=== PATIENT | male | born 1970 | race Caucasian/White ===

== ENCOUNTER 2023-07-20 08:59 | Emergency (ER) | payer SELFPAY ==
[2023-07-20] VITALS (7 sets, daily range): BP systolic 57–78; BP diastolic 35–60; PULSE 100–114; RESP 17–23; TEMP 36.4; O2SAT 83–100
--- NOTE | ~2023-07-20 | XR_ITS ---
EXAMINATION: XR chest port-a-cath/central DATE: 07/20/2023 09:58 INDICATION: Chest pain and shortness of breath. Central line placement. TECHNIQUE: frontal view of the chest was obtained. COMPARISON: None FINDINGS: Right internal jugular central venous catheter with distal tip at the cephalad superior vena cava. Di ffuse perihilar predominant groundglass opacity and increased interstitial pattern with peripheral Ke rley B-lines consistent with mild pulmonary edema. No pleural effusion or pneumothorax. Cardiomegaly. IMPRESSION: 1. Right internal jugular central venous catheter with distal tip in the cephalad superior vena cava. 2. Likely congestive heart failure with cardiomegaly and mild pulmonary edema. Reviewed, dictated and finalized at location A. IMPRESSION: 1. Right internal jugular central venous catheter with distal tip in the cephal ad superior vena cava. 2. Likely congestive heart failure with cardiomegaly and mild pulmonary edema.
--- NOTE | 2023-07-20 09:05 | ECG_ITS ---
Measurements Intervals [place] Rate: 99 P: 55 PA: 233 QRS: 59 QRSD: 144 T: 60 QT: 349 QTc: 449 Interpretive Statements SINUS RHYTHM WITH SINUS ARRHYTHMIA WITH FIRST DEGREE AV BLOCK POSSIBLE LEFT ATRIAL ENLARGEMENT INTRAVENTRICULAR CONDUCTION DELAY CANNOT RULE OUT SEPTAL INFARCT, AGE INDETERMINATE MINIMAL Q WAVES- INFERIOR LEADS ST-T WAVE ABNORMALITY IN HIGH LATERAL LEADS- CONSIDER ISCHEMIA BASELINE WANDER- II, III, AVF, V4 ABNORMAL ECG NO PREVIOUS ECG AVAILABLE FOR COMPARISON Electronically Signed On 07-20-2023 10:19:18 CDT by Jermaine Alexander D.O.
[2023-07-20 09:30] LABS: Basophils Percent Auto 0.3 % (0.2-1.2); Eosinophils Absolute Auto 0.1 K/mm3 (0-0.3); Eosinophils Percent Auto 0.7 % (0-4.4); Hematocrit 35.2 % (42.0-52.0); Immature Granulocyte Absolute 0.21 K/mm3 (0.00-0.031); Immature Granulocyte Percent A 1.7 % (0-0.5); Lymphocytes Absolute Auto 1.48 K/mm3 (0.9-3.2); Lymphocytes Percent Auto 12.1 % (18.3-44.2); Mean Corpuscular HGB Conc 34.1 g/dl (32-36); Mean Corpuscular Hemoglobin 30.8 pg (26-34); Mean Corpuscular Volume 90.3 fl (80-100); Mean Platelet Volume 11.1 fl (7.4-10.4); Monocytes Absolute Auto 0.6 K/mm3 (0.1-0.6); Monocytes Percent Auto 4.6 % (2.6-8.5); Neutrophils Absolute Auto 9.9 K/mm3 (1.3-6.7); Neutrophils Percent Auto 80.6 % (45.5-73.1); Platelet Count Result 205 k/mm3 (150-375); Red Cell Distribution Width 12.8 % (11.5-14.5); White Blood Count 12.2 K/mm3 (4.5-10.0)
[2023-07-20 09:38] LABS: Alanine Aminotransferase 73 U/L (6-50); Albumin Level 4.3 g/dL (3.5-5.1); Alkaline Phosphatase 47 U/L (38-126); Anion Gap 11 mmol/L (8-16); Aspartate Amino Transferase 92 U/L (17-59); Bilirubin,Total 0.9 mg/dL (0.2-1.3); Blood Urea Nitrogen 19 mg/dL (9-20); Calcium 8.3 mg/dL (8.4-10.2); Carbon Dioxide 22 mmol/L (22-30); Chloride 94 mmol/L (98-107); Estimated CRCL calculation 81 ml/min; Estimated Glomerular Filt Rate > 60; Glucose 164 mg/dL (65-110); Lipase 81 U/L (23-300); Potassium 4.9 mmol/L (3.4-5.0); Sodium 127 mmol/L (137-145)
[2023-07-20 09:39] LABS: Partial Thromboplastin Time 26.9 SECONDS (22.3-36.8); Prothrombin Time 14.1 Seconds (11.1-14.7)
[2023-07-20] MEDS: NOREPINEPHRINE 8 MG/D5W 250 ML 8 MG/250 ML BAG 9.38 MG IV CONT (09:42)
--- NOTE | 2023-07-20 09:48 | ED.CHESTPAIN ---
HPI - Chest Pain General Chief Complaint: Chest Pain Stated Complaint: cp Time Seen by Provider: 07/20/23 09:00 History of Present Illness HPI narrative: Patient is a 53-year-old male who presents ER with chest pain. Patient was at his PCPs office. He was there reporting epigastric pain and heartburn. She felt he appeared quite ill and that he was having heart failure issue as he had some crackles and brief hypoxia upon presentation there. She called report to the hospital prior to his arrival. In route patient was comfortable but upon entering the ED patient became pale and diaphoretic. Patient only reports that he has burning across his chest and he has the desire to belch. He would like some acid reflux medication or [place] to treat his discomfort. Patient reports his vascular manager is Dr. Subramanian at [facility]. Related Data Allergies Allergy/AdvReac Type Severity Reaction Status Date / Time No Known Allergies Allergy Unverified 07/24/18 10:03 Review of Systems Review of Systems: ROS unobtainable: Yes unobtainable due to medical condition PMFSH Past Medical History Medical History (Updated 07/20/23 @ 18:16 by Freddy Jones MD) Congestive heart failure Hypertension Psoriasis Surgical History Surgical History (Updated 07/20/23 @ 18:13 by Freddy Jones MD) History of mandibular surgery Social History Social History (Updated 07/20/23 @ 18:13 by Freddy Jones MD) Smoking status: Current every day smoker Exam Narrative: GENERAL: Ill-appearing, well-nourished, diaphoretic and dyspneic.. HEAD: Normocephalic, atraumatic. EYES: PERRL and EOMI. ENT: Mucous membranes moist. CHEST: Rales right base. Mild respiratory distress. HEART: Tachycardic and regular. Normal peripheral pulses. ABDOMEN: Soft, nontender, nondistended. EXTREMITIES: Normal range of motion. 1+ edema. SKIN: Cool, pale, diaphoretic, no rash. NEURO: Alert and oriented x3. PSYCH: Normal mood and affect. Course Course Emergency Course: Patient rapidly identified is critically ill. Taken to room 8. Patient placed on BiPAP to support his respirations. Blood pressure in the 60s and 70s. Patient verbally consented to have central line placement performed. I also discussed case with interventional cardiology Dr. Pires. We both have concerns for cardiogenic shock related to sequelae of recent OH. Patient to receive Lasix for volume issues and also to be started on norepinephrine after central line placed. After placement of the central line patient was started on norepinephrine with minimal effect and so vasopressin was added. Patient then went into respiratory failure and he was intubated, see separate note. Patient then lost his pulses and CODE BLUE was initiated. Patient had multiple rounds of epinephrine. He also was bradycardic and received full dosage of atropine. His Accu-Chek was normal. He was given an amp of sodium bicarb. We achieved ROSC x2. He however coded for the third time. He had also been on epinephrine drip at this time. Patient was in PEA, ultrasound showed biventricular failure and this was observed with the interventionalists. Blood to be seen sitting stagnant within the atria and ventricles. Decision was made to terminate CODE BLUE at 1124. I had been in contact with patient's sister Rick in [place] throughout multiple codes. She has been informed of his passing. Vital Signs Vital signs: Vital Signs Temperature 97.5 F L 07/20/23 09:01 Pulse Rate 105 H 07/20/23 09:01 Respiratory Rate 21 H 07/20/23 09:01 Blood Pressure 70/56 L 07/20/23 09:01 Pulse Oximetry 95 07/20/23 09:01 Oxygen Delivery Room Air 07/20/23 09:01 Temperature 97.5 F L 07/20/23 09:01 Pulse Rate 106 H 07/20/23 11:20 Respiratory Rate 23 H 07/20/23 10:32 Blood Pressure 78/60 L 07/20/23 10:32 Pulse Oximetry 83 L 07/20/23 10:32 Oxygen Delivery BiPAP 07/20/23 09:30
[2023-07-20 09:52] LABS: NT Pro B Type Natriuretic Pept 3180 pg/mL (19.9-100); Troponin I 0.733 ng/mL (0.000-0.034)
[2023-07-20] MEDS: FUROSEMIDE INJ 40 MG/4 ML VIAL IV PUSH (09:57)
--- NOTE | 2023-07-20 10:37 | PC.NURSE ---
Records request sent to [facility]
[2023-07-20] MEDS: RAPID SEQUENCE INTUBATION KIT 1 EACH (10:50)
[2023-07-20] MEDS: VASOPRESSIN INJ 100 UNITS in DEXTROSE 5% 95 ML IV CONT (11:00)
[2023-07-20] MEDS: EPINEPHrine HCL INJ 1 MG/ML AMPUL 3 MG (11:10)
[2023-07-20 11:12] LABS: Glucose Point of Care 129 mg/dl (65-105)
[2023-07-20] MEDS: EPINEPHrine INJ 1 MG in DEXTROSE 5% IN WATER 250 ML 75.3 MG IV CONT (11:20)
--- NOTE | 2023-07-20 11:44 | PC.NURSE ---
pt to go to [facility], please don't release until cleared by [facility]ure[facility] transport
--- NOTE | 2023-07-20 11:47 | PC.NURSE ---
[facility] - [place] [phone] [facility] [place] [phone]
--- NOTE | 2023-07-20 12:05 | PM.CNCAR ---
Assessment and Plan Assessment and plan (1) Cardiogenic shock: Code(s): R57.0 - Cardiogenic shock Status: Acute (2) Cardiac arrest: Code(s): I46.9 - Cardiac arrest, cause unspecified Status: Acute Plan This is a 53-year-old male with chronic systolic congestive heart failure, history of SVT who follows with [facility]. No prior cardiac records in our [facility] system. Patient had gone to his primary care today for chest pain evaluation, and given his clinical condition, he was instructed to go to ER. On arrival to the ER, patient was critically ill in profound shock and in respiratory distress (not hypoxic but labored breathing). Patient placed on BIPAP with some improvement in respiratory status. Systolic blood pressures in the 60s. He was started on pressors. Given dose of IV Lasix for pulmonary edema. Patient had reported chest pain for the past month. EKG showed sinus rhythm with sinus arrhythmia with first degree AVB, IVCD, cannot rule out old septal infarct, ST depressions in the high lateral leads. No evidence of STEMI on EKG. No prior EKG available for comparison. Given no STEMI, I did not take patient for emergent cardiac catheterization. Recommended medical resuscitation and stabilization. I suspect patient likely had a recent myocardial infarction at some point within the past month when his chest pain first began and now has complications of infarction with severe cardiogenic shock. Labs showed WBC 12.2, Na 127, initial troponin of 0.733, NT pro BNP of 3180. CXR with RIJ central line, mild diffuse pulmonary edema. During my evaluation of the patient in the ED, he became mentally altered and had appeared to tire himself out from a respiratory standpoint. Urgent intubation was being prepped, and then patient went into PEA cardiac arrest. Initially, pulse was obtained after 1 minute of chest compressions but then he lost pulse again and chest compressions were resumed. Patient ended up coding multiple times and underwent multiple rounds of chest compressions. No shockable rhythm was observed. Bedside cardiac ultrasound by Dr. Jones showed severe biventricular failure. Dr. Jones had been in contact with patient's sister during this event. Eventually, CPR was stopped given futility and patient . History of Present Illness History of Present Illness Consult date/time: 07/20/23 12:05 Requesting physician: Freddy Jones MD Consult reason: Other (Cardiogenic shock) Reason For Visit: cp Narrative: This is a 53-year-old male with chronic systolic congestive heart failure, history of SVT who follows with [facility]. No prior cardiac records in our [facility] system. Patient had gone to his primary care today for chest pain evaluation, and given his clinical condition, he was instructed to go to ER. On arrival to the ER, patient was critically ill in profound shock and in respiratory distress (not hypoxic but labored breathing). Patient placed on BIPAP with some improvement in respiratory status. Systolic blood pressures in the 60s. He was started on pressors. Given dose of IV Lasix for pulmonary edema. Patient had reported chest pain for the past month. EKG showed sinus rhythm with sinus arrhythmia with first degree AVB, IVCD, cannot rule out old septal infarct, ST depressions in the high lateral leads. No evidence of STEMI on EKG. No prior EKG available for comparison. Given no STEMI, I did not take patient for emergent cardiac catheterization. Recommended medical resuscitation and stabilization. I suspect patient likely had a recent myocardial infarction at some point within the past month when his chest pain first began and now has complications of infarction with severe cardiogenic shock. Labs showed WBC 12.2, Na 127, initial troponin of 0.733, NT pro BNP of 3180. CXR with RIJ central line, mild diffuse pulmonary edema. During my evaluation of the patient in the ED, he became mentally alte
== END 2023-07-20 12:53 | disposition expired ==
PROVIDERS: Emergency Provider Emergency Medicine
DX: I21.4 Non-ST elevation (NSTEMI) myocardial infarction (principal); I46.2 Cardiac arrest due to underlying cardiac condition; R57.0 Cardiogenic shock; I50.9 Heart failure, unspecified; I11.0 Hypertensive heart disease with heart failure; L40.9 Psoriasis, unspecified; F17.210 Nicotine dependence, cigarettes, uncomplicated
CPT/HCPCS: 31500; 36415; 36556; 80053; 82948; 83690; 83880; 84484; 85025; 85610; 85730; 92950; 93005; 94002; 96365; 96366; 96367; 96375; 99285; C1751; J0171; J0330; J0461; J1940; J7060